=== PATIENT | male | born 1980 | race Caucasian/White ===

== ENCOUNTER 2017-05-15 01:29 | Emergency (ER) | payer SELFPAY ==
[2017-05-15] MEDS ORDERED: PANTOPRAZOLE SODIUM 40 MG VIAL ONE (01:50)
[2017-05-15] MEDS ORDERED: LIDOCAINE 2% VISCOUS 15 ML UDCUP ONE (01:50)
[2017-05-15] MEDS ORDERED: MAG HYDROX/AL HYDROX/SIMETH 30 ML UDCUP ONE (01:50)
[2017-05-15 05:42] VITALS: BP 148/102; PULSE 78; RESP 20; TEMP 98.4; O2SAT 98
--- NOTE | 2017-05-15 06:06 | EDPHY ---
H & P Stated Complaint: ABD PAIN - Personal History Current Tetanus/Diphtheria Vaccine: Yes Current Tetanus Diphtheria and Acellular Pertussis (TDAP): Yes Constitutional: Initial Vital Signs Temperature (C) 36.9 C 05/15/17 01:31 Heart Rate 78 05/15/17 01:31 Respiratory Rate 20 05/15/17 01:31 Blood Pressure 148/102 H 05/15/17 01:31 O2 Sat (%) 98 05/15/17 01:31 O2 Delivery Mode Room Air Allergies/Adverse Reactions: No Known Allergies Allergy (Unverified 05/15/17 05:46) Home Medications: Medication Instructions Recorded NK [No Known Home Meds] 05/15/17 Medical Decision Making ED Course/Re-evaluation: Chief Complaint: abdominal pain HPI: mid 30s gentleman with a history of both gastritis and pancreatitis presenting with 2 days of upper abdominal pain. Patient states that he took some aspirin for the pain but has not been able to take anything else. He has flares of this 2 to 3 times a year. It is worsened by spicy foods and Rich fatty salty foods. He has not take ibuprofen as this makes his symptoms worse. Has some some nausea but no vomiting. No fevers or chills. No black coffee- ground vomit or blood. No dark tarry stools. No fevers or chills. Pain is in the upper abdomen is not moved. There are no aggravating or alleviating factors. ROS: 10 point Review of Systems is negative except as noted in the HPI. PMH: Gastritis, pancreatitis Social History: No smoking, no alcohol, occasional marijuana Family History: non-contributory Physical Exam: Gen: Awake, Alert, No Distress HEENT: Nose: no rhinorrhea Eyes: PERRLA, EOMI Mouth: Moist mucosa Neck: Supple, no JVD Chest: nontender, lungs clear to auscultation Heart: S1, S2 normal, no murmur Abd: Soft, moderate left upper quadrant and epigastric tenderness, no guarding Back: no CVA tenderness, no midline tenderness Ext: no edema, non-tender Skin: no rash Neuro: CN II-XII intact, Sensation grossly intact, Strength 5/5 in bilateral upper and lower extremities Clinical Course: Patient has a history of both pancreatitis and gastritis. I think clinically of symptoms are more consistent with gastritis. Bloods have been sent. Will start with a GI cocktail and IV Protonix and reassess. Laboratory evaluations are back. Chemistries normal. Liver functions normal. Lipase is 263. CBC is normal. The there is no evidence of acute pancreatitis. The patient is improved after Protonix and a GI cocktail. He is resting comfortably. He has a soft benign abdomen. Laboratory evaluations are unremarkable. Will discharge with follow-up with primary care physician in 2-3 days. I have instructed him to take [id number] Prilosec or other antacid medications. He should avoid aspirin and ibuprofen. - Data Points Laboratory Results: 05/15/17 05/15/17 01:29 01:29 WBC Pending RBC Pending Hgb Pending Hct Pending MCV Pending MCH Pending MCHC Pending RDW Pending Plt Count Pending MPV Pending Neut % (Auto) Pending Lymph % (Auto) Pending Mayes % (Auto) Pending Eos % (Auto) Pending Baso % (Auto) Pending Nucleat RBC Rel Count Pending Absolute Neuts (auto) Pending Absolute Lymphs (auto) Pending Absolute Monos (auto) Pending Absolute Eos (auto) Pending Absolute Basos (auto) Pending Absolute Nucleated RBC Pending Immature Gran % Pending Immature Gran # Pending Sodium Pending Potassium Pending Chloride Pending Carbon Dioxide Pending Anion Gap Pending BUN Pending Creatinine Pending Estimated GFR Pending Glucose Pending Calcium Pending Total Bilirubin Pending AST Pending ALT Pending Alkaline Phosphatase Pending Total Protein Pending Albumin Pending Lipase Pending Departure - Departure Disposition: Home, Routine, Self-Care Clinical Impression: Gastritis Condition: Good Instructions: Gastritis (ED) Additional Instructions: You may take [id number] antacids such as Prilosec OTC or Pepcid. Follow up with primary care physician in 2-3 days for further evaluation. Return to the emergency depart for increasing abdominal pain, nausea, vomiting, dark black bowel movements, or any other concerns. Referrals: NONE *PRIMARY CARE P,. [Primary Care Provider] - As per Instructions
[2017-05-15 06:17] LABS: % IMMATURE GRANULYOCYTES 0.3 % (0.0-1.1); ABSOLUTE IMMATURE GRANULOCYTES 0.03 10^3/uL (0.00-0.10); ADD DIFF? NO; ADD MORPH? NO; ADD SCAN? NO; ALANINE AMINOTRANSFERASE 45 IU/L (21-72); ALBUMIN 4.7 g/dL (3.5-5.0); ALKALINE PHOSPHATASE 96 IU/L (38-126); ANION GAP 21 mEq/L (8-16); ASPARTATE AMINOTRANSFERASE 42 IU/L (17-59); ATYPICAL LYMPHOCYTE FLAG 0 (0-99); CALCIUM 9.8 mg/dL (8.5-10.4); CARBON DIOXIDE 27 mEq/l (22-31); CHLORIDE 94 mEq/L (97-110); CREATININE 1.2 mg/dL (0.7-1.3); FRAGMENT RBC FLAG 0 (0-99); GLOMERULAR FILTRATION RATE > 60; GLUCOSE 194 mg/dL (70-100); HEMATOCRIT 43.5 % (40.0-51.0); HEMOGLOBIN 15.3 g/dL (13.7-17.5); LEFT SHIFT FLG 0 (0-99); LIPEMIA HEMOLYSIS FLAG 90 (0-99); MEAN CELL HEMOGLOBIN 33.2 pg (27.9-34.1); MEAN CELL HEMOGLOBIN CONCENTR. 35.2 g/dL (32.4-36.7); MEAN CELL VOLUME 94.4 fL (81.5-99.8); MEAN PLATELET VOLUME 10.3 fL (8.7-11.7); PLATELET CLUMPS FLAG 10 (0-99); PLATELET COUNT 274 10^3/uL (150-400); POTASSIUM 3.2 mEq/L (3.5-5.2); RED BLOOD CELL COUNT 4.61 10^6/uL (4.40-6.38); RED CELL DISTRIBUTION WIDTH 11.9 % (11.5-15.2); SODIUM 142 mEq/L (134-144); TOTAL PROTEIN 7.7 g/dL (6.3-8.2)
== END 2017-05-15 02:40 | disposition home or self-care (01) ==
DX: K29.70 Gastritis, unspecified, without bleeding (principal)

== ENCOUNTER 2017-05-16 02:18 | Emergency (ER) | payer SELFPAY ==
[2017-05-16] MEDS ORDERED: LIDOCAINE 2% VISCOUS 15 ML UDCUP PO ONE (02:30)
[2017-05-16] MEDS ORDERED: MAG HYDROX/AL HYDROX/SIMETH 30 ML UDCUP PO ONE (02:30)
[2017-05-16] MEDS ORDERED: PANTOPRAZOLE SODIUM 40 MG VIAL IVP ONE (02:31)
[2017-05-16] MEDS ORDERED: HALOPERIDOL LACT 5 MG/ML INJ IVP ONE (02:39)
--- NOTE | 2017-05-16 02:58 | EDPHY ---
H & P Stated Complaint: Abd pain Time Seen by Provider: 05/16/17 02:32 HPI/ROS: Chief Complaint: Abdominal pain, vomiting HPI: 37-year-old male with a history of gastritis presenting with upper abdominal pain and vomiting. I saw the patient yesterday morning diagnosed with gastritis. At that time he had relief with a GI cocktail and IV Protonix. Patient went home and purchased some Prilosec OTC and Maalox. Patient states he is taking his medications but he has been unable to keep them down because he has had persistent nausea or vomiting. No hematemesis or coffee-ground emesis. No dark black bowel movements. No fevers or chills. States he only gets relief when he sits in a hot bath tub. He describes moderate marijuana use about 3 times a week but has not used for about for 5 days. No fevers or chills. No chest pain or shortness of breath. ROS: 10 point Review of Systems is negative except as noted in the HPI. PMH: Gastritis, pancreatitis Social History: Positive smoking, rare alcohol, occasional marijuana Family History: non-contributory Physical Exam: Gen: Awake, Alert, No Distress HEENT: Nose: no rhinorrhea Eyes: PERRLA, EOMI Mouth: Moist mucosa Neck: Supple, no JVD Chest: nontender, lungs clear to auscultation Heart: S1, S2 normal, no murmur Abd: Soft, very mild epigastric tenderness and left upper quadrant tenderness, no guarding Back: no CVA tenderness, no midline tenderness Ext: no edema, non-tender Skin: no rash Neuro: CN II-XII intact, Sensation grossly intact, Strength 5/5 in bilateral upper and lower extremities - Personal History Current Tetanus/Diphtheria Vaccine: Unsure Current Tetanus Diphtheria and Acellular Pertussis (TDAP): Unsure - Medical/Surgical History Hx Asthma: No Hx Chronic Respiratory Disease: No Hx Diabetes: No Hx Cardiac Disease: No Hx Renal Disease: No Hx Cirrhosis: No Hx Alcoholism: No Hx HIV/AIDS: No Hx Splenectomy or Spleen Trauma: No Other PMH: Gastritis, pancreatitis - Social History Smoking Status: Current some day smoker Constitutional: Initial Vital Signs Temperature (C) 37.0 C 05/16/17 02:23 Heart Rate 79 05/16/17 02:23 Respiratory Rate 20 05/16/17 02:23 Blood Pressure 152/114 H 05/16/17 02:23 O2 Sat (%) 98 05/16/17 02:23 O2 Delivery Mode Room Air Allergies/Adverse Reactions: No Known Allergies Allergy (Unverified 05/15/17 05:46) Home Medications: Medication Instructions Recorded RX: Ondansetron Odt [Zofran Odt 4 4 mg PO Q4 PRN #10 tab 05/16/17 mg (*)] Medical Decision Making ED Course/Re-evaluation: Patient's Re presenting with symptoms of gastritis. Last night his workup was unremarkable. He has not been able to keep any medicines down. Will give him IV Haldol Protonix and GI cocktail and reassess. Patient has a soft benign abdomen. No evidence of acute surgical process at this time. 0300 patient is feeling significantly improved after medications. His pain is resolved. He is no longer feeling nauseated. Will plan to p. o. challenge him. Plan will be for discharge with an antiemetic and [id number]-[id number] with antacid medications, follow up with primary care physician. - Data Points Medications Given: Discontinued Medications Al Hydroxide/Mg Hydroxide (Maalox Susp) 30 ml PO ONCE ONE Stop: 05/16/17 02:31 Last Admin: 05/16/17 02:34 Dose: 30 ml Haloperidol Lactate (Haldol Injection) 2.5 mg IVP EDNOW ONE Stop: 05/16/17 02:40 Last Admin: 05/16/17 02:42 Dose: 2.5 mg Lidocaine (Lidocaine 2% Viscous) 15 ml PO ONCE ONE Stop: 05/16/17 02:31 Last Admin: 05/16/17 02:34 Dose: 15 ml Pantoprazole Sodium (Protonix) 40 mg IVP EDNOW ONE Stop: 05/16/17 02:32 Last Admin: 05/16/17 02:34 Dose: 40 mg Departure - Departure Disposition: Home, Routine, Self-Care Clinical Impression: Gastritis Condition: Good Instructions: Ondansetron (By mouth, Into the mouth), Gastritis (ED) Additional Instructions: Follow up with primary care physician in 2-3 days for further evaluation. You may take Zofran every 8 hr as needed for nausea and vomiting. Make sure you take [id number] Prilosec and at acids as prescribed your visit yesterday. Return emergency depart for increasing pain, nausea, vomiting, fevers, chills, or any other concerns. Referrals: NONE *PRIMARY CARE P,. [Primary Care Provider] - As per Instructions Prescriptions: RX: Ondansetron Odt [Zofran Odt 4 mg (*)] 4 mg PO Q4 PRN #10 tab PRN Reason: nausea
[2017-05-16] MEDS ORDERED: ONDANSETRON 4MG PREPACK#2 BTL TAKEHOME ONE (03:10)
[2017-05-16 03:42] VITALS: RESP 16
[2017-05-16 03:56] VITALS: BP 126/97; PULSE 62; TEMP 98.2; O2SAT 96
== END 2017-05-16 03:57 | disposition home or self-care (01) ==
LOC: EDUNIT#
DX: K52.9 Noninfective gastroenteritis and colitis, unspecified (principal); F17.200 Nicotine dependence, unspecified, uncomplicated
CPT/HCPCS: 96374; J1630